=== PATIENT | male | born 1955 | race Caucasian/White ===

== ENCOUNTER → 2020-05-26 | Outpatient (CLI) | payer OTHER ==
[~2020-05-26] MED LIST: ASPIRIN325 PO; EFFIENT10 MG PO; GLUCOPHAGE1000 MG PO; GLUCOTROL5 MG PO; LANTUS100 UNIT/M SUBQ; LIPITOR10 MG PO; LISINOPRIL10 MG PO; PAXIL10 MG; TOPROL XL25 MG PO
== END ==
LOC: SJCVCIMAG 08:31
PROVIDERS: ATTEND Internal Medicine
DX: I65.23 Occlusion and stenosis of bilateral carotid arteries (principal); R00.1 Bradycardia, unspecified; I25.10 Atherosclerotic heart disease of native coronary artery without angina pectoris; I10 Essential (primary) hypertension; E11.9 Type 2 diabetes mellitus without complications; E78.5 Hyperlipidemia, unspecified